=== PATIENT | female | born 1990 ===

== ENCOUNTER → 2019-01-10 | Outpatient (REF) | payer OTHER | LOC: M LAB LCGH 11:19 | PROVIDERS: ATTEND Obstetrics & Gynecology | DX: Z12.4 Encounter for screening for malignant neoplasm of cervix (principal); Z34.90 Encounter for supervision of normal pregnancy, unspecified, unspecified trimester; B37.3 Candidiasis of vulva and vagina ==

== ENCOUNTER 2023-06-29 15:26 | Inpatient (IN) | payer OTHER, SELFPAY ==
[~2023-06-29] VITALS: Ht 160 cm; Wt 65.8 kg
[2023-06-29] VITALS (27 sets, daily range): BP systolic 88–136; BP diastolic 51–90; O2SAT 99
[2023-06-29] MEDS ORDERED: CLIN1GEL3 TOP (15:47)
[2023-06-29] MEDS ORDERED: PRENTAB9 PO (15:47)
[2023-06-29] MEDS ORDERED: CARBOPROST TROMETHAMINE 250 MCG/ML AMP IM PRN (16:30)
[2023-06-29] MEDS ORDERED: OXYTOCIN DRIP 30 UNITS in IV 1 EA IV PRN (16:30)
[2023-06-29] MEDS ORDERED: OXYTOCIN INJ 10UNITS/ML 1ML VIAL IM PRN (16:30)
[2023-06-29] MEDS ORDERED: LIDOCAINE 1% MDV 20ML VIAL INFIL PRN (16:30)
[2023-06-29] MEDS ORDERED: TRANEXAMIC ACID INJection 1,000 MG in NS 100 ML IV PRN (16:30)
[2023-06-29] MEDS: BETAMETHASONE SOLUSPAN 6MG/ML 5ML VIAL IM ONE (17:15)
[2023-06-29] MEDS: PENICILLIN G POTASSIUM 5 MU IV 5 MU in D5W MINI-BAG PLUS 100 ML IV STA (17:15)
[2023-06-29 18:02] LABS: HEMATOCRIT 41.2 % (36.0-47.0); HEMOGLOBIN 12.6 g/dl (12.0-15.5); MEAN CORPUSCULAR HEMOGLOBIN 24.5 pg (27.0-33.0); MEAN CORPUSCULAR HGB CONC 30.6 g/dl (32.0-36.5); PLATELET COUNT, AUTOMATED 247 10^3/uL (150-450); RED BLOOD COUNT 5.15 10^6/uL (4.00-5.40); WHITE BLOOD COUNT 12.2 10^3/uL (4.0-10.0)
[2023-06-29] MEDS: OXYTOCIN DRIP 30 UNITS in IV 1 EA IV SCH (19:29)
[2023-06-29] MEDS: LR 1,000 ML IV SCH (19:30)
[2023-06-29] MEDS: PEN G POT 3,000,000 UNIT/50 ML 3,000,000 UNIT in IV 1 EA IV SCH (21:22)
[2023-06-29] MEDS ORDERED: ONDANSETRON 4MG 2ML VIAL IV PRN (22:20)
[2023-06-29] MEDS ORDERED: diphenhydrAMINE 50MG/ML VIAL IV PRN (22:20)
[2023-06-29] MEDS ORDERED: LR 500 ML IV PRN (22:20)
[2023-06-29] MEDS ORDERED: NALOXONE INJ 0.4MG/1ML VIAL IV PRN (22:20)
[2023-06-29] MEDS ORDERED: EPIDURAL/PCA KEYS XX PRN (22:20)
[2023-06-29] MEDS: FENTANYL/ROPIVACAINE/NACL BAG 100 ML EPIDURAL SCH (22:25)
[2023-06-29] MEDS: ePHEDrine SULFATE 25 MG/5 ML(5MG/ML) SYRINGE IVP PRN (23:35)
[2023-06-29] MEDS: LACTATED RINGER'S 1000 ML IV STA (23:36)
[2023-06-30] VITALS (12 sets, daily range): BP systolic 106–132; BP diastolic 58–77; O2SAT 97–98
[2023-06-30] MEDS: METHYLERGONOVINE MALEATE 0.2MG/ML 1ML VIAL IM PRN (02:44)
[2023-06-30] MEDS ORDERED: ANUSOL HC CREAM 30GM TOP PRN (03:15)
[2023-06-30] MEDS ORDERED: RHOGAM 300MCG (1500IU) INJ IM SCH (03:15)
[2023-06-30] MEDS ORDERED: DOCUSATE SODIUM 100MG CAPSULE PO PRN (03:15)
[2023-06-30] MEDS ORDERED: IBUPROFEN 800 MG TAB PO PRN (03:15)
[2023-06-30] MEDS ORDERED: ONDANSETRON 4MG 2ML VIAL IV PRN (03:15)
[2023-06-30] MEDS ORDERED: MOM 30ML SUSPENSION UDC PO PRN (03:15)
[2023-06-30] MEDS ORDERED: ACETAMINOPHEN TAB 650MG DOSE (2X325MG) PO PRN (03:15)
[2023-06-30] MEDS ORDERED: ACETAMINOPHEN 500 MG TAB PO PRN (03:15)
[2023-06-30] MEDS ORDERED: DIBUCAINE 1% OINTMENT 30GM TOP PRN (03:15)
[2023-06-30] MEDS: PRENATAL VITAMINS CHEWABLE TABLET PO SCH (09:22)
[2023-06-30] MEDS: IBUPROFEN 600MG TAB PO PRN (15:52)
[2023-07-01 06:00] VITALS: BP 109/62; O2SAT 98
[2023-07-02] MEDS ORDERED: MEASLES,MUMPS,RUBELLA VACCINE INJ (MMR-II) SC.IMMUN ONE (09:00)
== END 2023-07-01 12:50 | disposition home or self-care (01) | DRG 560 ==
LOC: M LDO 15:26 → M LDI 16:30 → M OBS 06-30 05:04
PROVIDERS: ADMIT Advanced Practice Midwife; ATTEND Advanced Practice Midwife
PROC: 10E0XZZ Delivery of Products of Conception, External Approach (ICD-10-PCS; principal; 2023-06-30)
PROC: 0HQ9XZZ Repair Perineum Skin, External Approach (ICD-10-PCS; 2023-06-30)
DX: O42.013 Preterm premature rupture of membranes, onset of labor within 24 hours of rupture, third trimester (principal); O40.3XX0 Polyhydramnios, third trimester, not applicable or unspecified; O24.420 Gestational diabetes mellitus in childbirth, diet controlled; Z3A.36 36 weeks gestation of pregnancy; Z88.1 Allergy status to other antibiotic agents; Z88.2 Allergy status to sulfonamides; O69.81X0 Labor and delivery complicated by cord around neck, without compression, not applicable or unspecified; O70.0 First degree perineal laceration during delivery; Z37.0 Single live birth